=== PATIENT | female | born 1960 | race Caucasian/White ===

== ENCOUNTER 2020-11-19 16:10 | Emergency (ER) | payer OTHER ==
[2020-11-19 17:07] LABS: HEMOGLOBIN 14.3 gm/dl (12.3-15.3); RED BLOOD COUNT 4.45 M/UL (4.00-5.10); WHITE BLOOD COUNT 7.6 K/UL (4.5-11.0)
[2020-11-19 17:55] LABS: BUN/CREATININE RATIO 19 (0-10)
[2020-11-19] MEDS ORDERED: PREDNISONE 20 M20 MG PO (18:16)
[2020-11-19] MEDS ORDERED: VENTOLIN HFA 66.7 GM INH (18:16)
== END 2020-11-19 19:00 | disposition home or self-care (01) ==
LOC: ER1 16:10
PROVIDERS: Emergency Medicine
DX: J45.901 Unspecified asthma with (acute) exacerbation (principal)
CPT/HCPCS: 71045; 80053; 82550; 82553; 83874; 83880; 84484; 85025; 93005; 96374; 99285; J1100

== ENCOUNTER → 2021-06-15 | Outpatient (CLI) | payer OTHER ==
[~2021-06-15] MED LIST: PREDNISONE 20 M20 MG PO; VENTOLIN HFA 66.7 GM INH
== END ==
LOC: US 14:09 → MAMO 15:00
DX: Z12.31 Encounter for screening mammogram for malignant neoplasm of breast (principal); R92.1 Mammographic calcification found on diagnostic imaging of breast; I65.23 Occlusion and stenosis of bilateral carotid arteries; I10 Essential (primary) hypertension; E78.5 Hyperlipidemia, unspecified
CPT/HCPCS: 77063; 77067; 93880

== ENCOUNTER → 2021-06-30 | Outpatient (CLI) | payer OTHER | LOC: MAMO 14:28 | DX: R92.8 Other abnormal and inconclusive findings on diagnostic imaging of breast (principal) | CPT/HCPCS: 76641-RT; 77065; G0279 ==

== ENCOUNTER 2021-09-08 20:30 | Emergency (ER) | payer OTHER | END 2021-09-08 21:31 | disposition left against medical advice (07) | LOC: ER1 20:30 | DX: Z53.21 Procedure and treatment not carried out due to patient leaving prior to being seen by health care provider (principal) ==